=== PATIENT | male | born 1960 | race Caucasian/White ===

== ENCOUNTER 2024-03-30 12:57 | Emergency (ER) | payer OTHER ==
[~2024-03-30] VITALS: Ht 170.2 cm; Wt 62.1 kg
[2024-03-30] MEDS: IV NS 0.9% 1,000 ML BAG IV ONE (15:00)
[2024-03-30 15:23] LABS: CALCIUM, SERUM 8.8 mg/dL (8.5-10.1); CARBON DIOXIDE 27 mmol/L (21-32); CHLORIDE 102 mmol/L (98-107); GLUCOSE 94 mg/dL (74-106); POTASSIUM 4.6 mmol/L (3.5-5.1); SODIUM SERUM 134 mmol/L (136-145); UREA NITROGEN, BLOOD 14 mg/dL (7-18)
[2024-03-30 16:03] LABS: BASOPHILS % (AUTO) 0.8 % (0.0-2.0); EOSINOPHILS # (AUTO) 0.1 K/uL (0.0-0.7); EOSINOPHILS % (AUTO) 1.2 % (0.0-6.0); HEMATOCRIT 28 % (39-51); HEMOGLOBIN 7.7 g/dL (13.5-17.5); LYMPHOCYTES # (AUTO) 2.4 K/uL (0.8-4.8); LYMPHOCYTES % (AUTO) 55.6 % (20.0-44.0); MEAN CORPUSCULAR HEMOGLOBIN 18 PG (26.0-33.0); MEAN CORPUSCULAR HGB CONC 28 g/dl (31.0-36.0); MEAN CORPUSCULAR VOLUME 66 fL (80-96); MONOCYTES # (AUTO) 0.3 K/uL (0.1-1.30); MONOCYTES % (AUTO) 6.9 % (2.0-12.0); NEUTROPHILS # (AUTO) 1.5 K/uL (1.8-8.9); NEUTROPHILS % (AUTO) 35.5 % (43.0-81.0); PLATELET COUNT (AUTO) 389 K/uL (150-450); RED CELL DISTRIBUTION WIDTH 20.3 % (11.5-15.0); WHITE BLOOD COUNT (AUTO) 4.3 K/uL (4.3-11.0)
[2024-03-30] MEDS ORDERED: TIMO5DRO35 EACHEYE (16:17)
[2024-03-30] MEDS ORDERED: LATA7.5D EACHEYE (16:17)
[2024-03-30] MEDS ORDERED: FERR325T23 PO (16:33)
[2024-03-30 17:29] VITALS: BP 161/83; TEMP 97.9; O2SAT 100
[2024-03-30 19:07] LABS: ANISOCYTOSIS 1+; EOSINOPHILS % (MANUAL) 2 % (0-4); HYPOCHROMASIA 1+; LYMPHOCYTES % (MANUAL) 35 % (16-48); MONOCYTES % (MANUAL) 14 % (0-11.0); NEUTROPHILS % (MANUAL) 49 (42-76); OVALOCYTES 1+; PLATELET ESTIMATE ADEQUATE; TARGET CELLS 1+
== END 2024-03-30 17:30 | disposition home or self-care (01) ==
LOC: ER 13:14
DX: D50.9 Iron deficiency anemia, unspecified (principal); R00.1 Bradycardia, unspecified; R55 Syncope and collapse
CPT/HCPCS: 99285; 96360; 71045; 93005; 85025; 80048; 36415; 84443; 84484; 82962; 85007; J7030